=== PATIENT | female | born 1985 | race Caucasian/White ===

== ENCOUNTER 2025-03-07 08:41 | Outpatient (AMB) | payer OTHER, SELFPAY ==
--- OUTSIDE RECORDS SUMMARY | 2025-03-07 08:55 | XMS_ITS | Clinical Summary ---
Author Organization [facility] Address [address] [place] [id number] Care Team Providers Care Dean Of Students Name Role Phone Ariadne Broderick NP Primary Care Provider [phone] Allergies No known active allergies Medications hydrOXYzine HCl (ATARAX) 10 MG tablet See Instructions, 2 tablet By Mouth at bedtime as needed insomnia, # 60 tablet, 5 Refills, Maintenance, 11/19/23 9:12:00 EDT, [facility]/pharmacy #[id number], Partial fill upon patient request if the prescription is for a schedule II opioid drug., 155, cm, ... 4 Active levonorgestrel- ethinyl estradiol (Sronyx) 0.1-20 MG-MCG per tablet Take 1 tablet by mouth. 4 Active meclizine (ANTIVERT) 12.5 MG tablet Take 12.5 mg by mouth. 4 Active clonazePAM (KlonoPIN) 0.5 MG tablet 4 Active fluticasone (FloNASE) 50 mcg/spray nasal sprayIndication s:Chronic rhinitis INSTILL 2 SPRAYS BOTH NOSTRILS DAILY FOR 30 DAYS 48 mL 3 4 Active Active Problems Problem Noted Date Diagnosed Date Carpal tunnel syndrome 07/04/2024 Epidermoid cyst 07/04/2024 DEISY (generalized anxiety disorder) 07/04/2024 Joint pain, hip 07/04/2024 Leukocytosis 07/04/2024 Muscle strain of lower extremity 07/04/2024 Neck pain 07/04/2024 Oral thrush 07/04/2024 Immunizations Immunization Administration Dates Next Due Influenza Virus Trivalent Sp lit Vaccine (MDV) IM 06/11/2022,05/31/2021,05/25/2020 Influenza Whole 06/13/2019 Tdap 03/05/2022 Social History Tobacco Use Types Packs/Day Years Used Date Smoking Tobacco: Never Passive Smoke Exposure: Never Smokeless Tobacco: Never Tobacco Cessation:Counseling Given: Not Answered Alcohol Use Standard Drinks/Week Comments Yes 0 (1 standard drink = 0.6 oz pur e alcohol) very socially Comments Unknown Sex and Gender Information Value Date Recorded Sex Assigned at Female 07/27/2024 4:39 PM EST Legal Sex Female 9:45 AM EDT Gender Identity Female 07/27/2024 4:39 PM EST Sexual Orientation Heterosexual (straight) 07/27 4:39 PM EST Last Filed Vital Signs Vital Sign Reading Time Taken Comments Blood Pressure - - Pulse - - Temperature - - Respiratory Rate - - Oxygen Saturation - - Inhaled Oxygen Concentration - - Weight 54.4 kg (120 lb) 07/05/2024 10:28 AM EST Height 157.5 cm (5' 2 ) 07/05/2024 10:28 AM EST Body Mass Index 21.95 07/05/2024 10:28 AM EST Plan of Treatment Health Maintenance Due Date Last Done Comments Hepatitis C Virus Screening 1986 HIV Screening 1999 Hepatitis B Vaccines (1 of 3 - 19+ 3-dose series) 2005 Pap Smear (Ages 21-65) 2007 COVID-19 Vaccine ( season) 2024 07/05/2021, 10/02/2020, 09/04/2020 Influenza Vaccine 03/31/2025 06/11/2022, , 05/25/2020, Additional history exists DTaP/Tdap/Td Vaccines (2 - Td or Tdap) 03/05/2032 03/05/2022 HPV Vaccines Aged Out No longer eligi ble based on patient's age to complete this topic Pneumococcal Vaccine: Pediatric (0-5 Years) and At-Risk Patients (6 to 49 Years) Aged Out No longer eligible based on patient's age to complete this topic Insurance [facility] PPO Care Teams Dean Of Students Relationship Specialty Start Date End Date Ariadne Broderick [employer] [address] [place] [id number] PCP - General 07/05/24
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
== END 2025-03-07 09:28 | disposition home or self-care (01) ==
LOC: HO.HSM 08:42
PROVIDERS: PCP Nurse Practitioner Gerontology; Visit Provider Psychiatry & Neurology Neurology
DX: H83.2X2 Labyrinthine dysfunction, left ear (principal); R55 Syncope and collapse; F41.9 Anxiety disorder, unspecified
CPT/HCPCS: 99214